=== PATIENT | female | born 1995 | race Two or more races ===

== ENCOUNTER 2021-12-03 06:07 | Inpatient (IN) | payer OTHER ==
[~2021-12-03] VITALS: Ht 157.5 cm; Wt 3.6 kg
[2021-12-03] MEDS ORDERED: ZOFRAN8 MG PO (06:32)
[2021-12-03] MEDS ORDERED: PEPCID AC20 MG PO (06:32)
[2021-12-03] MEDS ORDERED: PRENATAL TABLE1 EAC1 PO (06:33)
== END 2021-12-05 15:48 | disposition home or self-care (01) | DRG 788 ==
LOC: OB/GYN 06:07 → LDR 06:07 → OB/GYN 19:00
PROVIDERS: ADMIT Obstetrics & Gynecology; ATTEND Obstetrics & Gynecology
PROC: 4A1HXCZ Monitoring of Products of Conception, Cardiac Rate, External Approach (ICD-10-PCS; 2021-12-03)
PROC: 10D00Z1 Extraction of Products of Conception, Low, Open Approach (ICD-10-PCS; principal; 2021-12-03 16:00)
DX: O62.1 Secondary uterine inertia (principal); O36.63X0 Maternal care for excessive fetal growth, third trimester, not applicable or unspecified; Z3A.39 39 weeks gestation of pregnancy; Z37.0 Single live birth; Z20.822 Contact with and (suspected) exposure to COVID-19